=== PATIENT | female | born 1945 | race Two or more races ===

== ENCOUNTER → 2018-11-08 | Outpatient (CLI) | payer OTHER ==
[~2018-11-08] MED LIST: DURICEF500 MG PO; PRAMOSONE TP
== END | disposition home or self-care (01) ==
LOC: MAMO-SONO 13:34
DX: Z12.31 Encounter for screening mammogram for malignant neoplasm of breast (principal); Z87.898 Personal history of other specified conditions; N60.21 Fibroadenosis of right breast; N60.22 Fibroadenosis of left breast

== ENCOUNTER 2018-12-19 11:19 | Outpatient (CLI) | payer OTHER | END 2018-12-19 11:27 | disposition home or self-care (01) | LOC: TOM 11:19 | DX: R10.32 Left lower quadrant pain (principal) ==

== ENCOUNTER 2021-03-29 08:00 | Outpatient (CLI) | payer OTHER | END 2021-03-29 08:30 | disposition home or self-care (01) | LOC: PPH VACUNA 08:00 | PROVIDERS: ATTEND Emergency Medicine Pediatric Emergency Medicine | DX: Z23 Encounter for immunization (principal) ==

== ENCOUNTER 2021-05-25 11:02 | Outpatient (CLI) | payer OTHER | END 2021-05-25 11:15 | disposition home or self-care (01) | LOC: MAMO-SONO 11:02 | DX: Z12.31 Encounter for screening mammogram for malignant neoplasm of breast (principal); Z87.898 Personal history of other specified conditions ==

== ENCOUNTER 2021-06-03 09:01 | Outpatient (CLI) | payer OTHER | END 2021-06-03 09:04 | disposition home or self-care (01) | LOC: SONOGRAMA 09:01 | PROVIDERS: ATTEND Family Medicine Geriatric Medicine | DX: N28.1 Cyst of kidney, acquired (principal) ==

== ENCOUNTER 2024-07-31 11:25 | Outpatient (CLI) | payer OTHER | END 2024-07-31 11:29 | disposition home or self-care (01) | LOC: RAD 11:25 | PROVIDERS: ATTEND Psychiatry & Neurology Psychiatry | DX: J44.9 Chronic obstructive pulmonary disease, unspecified (principal) ==

== ENCOUNTER 2025-06-16 09:16 | Outpatient (CLI) | payer OTHER | END 2025-06-16 09:29 | disposition home or self-care (01) | LOC: MRI 09:16 | PROVIDERS: ATTEND Internal Medicine | DX: R10.20 Pelvic and perineal pain unspecified side (principal) | CPT/HCPCS: 72196; 74182; Q9965 ==